=== PATIENT | female | born 1985 | race Caucasian/White ===

== ENCOUNTER 2016-09-25 08:14 | Day surgery (SDC) | payer MEDICAID ==
[~2016-09-25] VITALS: Ht 165.1 cm; Wt 73.1 kg
[2016-09-25] VITALS (12 sets, daily range): BP systolic 94–131; BP diastolic 43–84; PULSE 47–71; RESP 12–22; O2SAT 93–100
[2016-09-25] MEDS: Lactated Ringer's 1,000 ML IV SCH ×3 (05:21→11:46)
--- NOTE | 2016-09-25 06:01 | HP PRE OP ---
[address] [address] PREOPERATIVE HISTORY AND PHYSICAL PATIENT: DANIEL ALMAZAN : 1985 MR#: [id number] ADMIT: 09/25/2016 JOB ID: [id number] IDENTIFICATION: The patient is a 31-year-old, G3, P1, AB2 woman. CHIEF COMPLAINT: Desires tubal sterilization. HISTORY OF PRESENT ILLNESS: This patient has been considering tubal ligation for a year, with both she and her partner certain that they do not want to have additional children. Her partner will not have vasectomy; and thus, she wants to undergo tubal sterilization. She has considered reversible contraceptives as well. She is currently reporting condoms for contraception. She has understood that tubal ligation is a major surgery compared to vasectomy, requiring a general anesthetic, and with more risks. She would like to proceed, however, understanding that risks include bleeding, infection, injury to the urinary tract and bowel, potential need for laparotomy if complication was to occur, anesthetic risks, etc. She understands that tubal ligation could fail as well, although unlikely. She has had all her questions answered, no guarantees have been stated or implied, and she has signed informed consent for surgery. In summary then, the patient will be admitted to [facility] on September 25, 2016, on which day she will undergo laparoscopic tubal ligation, probably via Falope Rings. PHYSICAL EXAMINATION: On admission: Height 65 inches. Weight 160 pounds. Blood pressure 100/68. Neck: No thyromegaly. Lungs: Clear to auscultation and percussion. Heart: Regular in rate and rhythm. Abdomen: Nontender. No mass. No surgical scarring. Pelvic examination recently accomplished elsewhere, reportedly normal (see medical record from July 11, 2016). IMPRESSION: 1. Desires sterilization per laparoscopic tubal ligation, the reason for admission on September 25, 2016. 2. Condoms for contraception. 3. Reproductive history. Vaginal delivery x1, miscarriage x3-4. 4. 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 5. Prior intense periods in the past (before Mirena intrauterine devices), planning to track over time, yet indicating that she may need some sort of hormonal management if significant periods. The patient had Mirena IUD removed in July of this year. 6. Hormonal intolerance, note weight gain and felt poorly with Mirena IUD reportedly (although she had three of them), and she had weight gain with Depo-Provera. 7. No known drug allergies. 8. Family history of heart disease (grandmother). PLAN: The patient will be admitted to [facility] on September 25, 2016, on which day she will undergo laparoscopic tubal ligation likely via Falope rings.
--- NOTE | 2016-09-25 07:42 | PCM.HPANE ---
Patient Data Surgeon Admitting Provider: Attending Provider:Dmitry Agee MD Primary Care Physician:Jackie Other Provider:Soha Soliz Anesthesia Reason for Visit Desired Sterilization Ht/WT & BMI Height (Feet): 5 Height (Inches): 5 Weight (Kilograms): 72 Body Mass Index 26.00 Allergies Coded Allergies: Penicillins (Verified Allergy, Unknown, CHARTED ON WRONG PT, 09/24/16) Medications No Active Prescriptions or Reported Meds Stop/Bang Risk Assessment Category Category 1A: Patient has history of documented sleep apnea, and HAS NOT received any narcotic, sedative or anesthesia administration during this stay. Category 1B: Patient has history of documented sleep apnea, and HAS received any narcotic , sedative or anesthesia administration during this stay Category 2: Patient has SUSPECTED Obstructive Sleep Apnea, and HAS received any narcotic , sedative or anesthesia administration during this stay. Category 3: Patient has SUSPECTED Obstructive Sleep Apnea and HAS NOT received narcotic, sedative or anesthesia administration during this stay. Category 4: Outpatient in Procedural Areas with known sleep apnea or who screen positive for High Risk via the STOP/BANG questionnaire. Exam Exam General Appearance: Alert, Oriented X3, Cooperative HEENT/AIRWAY: MP 1 Lungs: Normal Air Movement Heart: Regular Rate/Rhythm Meds/Labs/Diagnostics Admission Meds Current Medications Lactated Ringer's (Lr) 1,000 ml @ 120 mls/hr [id number] IV Last administered on t 05:21; Start 09/25/16 at 05:00; Stop 09/25/16 at 13:19 Plan Impression Patient chart reviewed, patient interviewed and anesthestic plan with risks, benefits, and alternatives discussed, and informed consent obtained. ASA Physical Status: ASA1 Normal Healthy Anesthetic Plan: GA Bene/Risks/Altern/Consents: Yes HP Complete Prior to Induction: Yes Ethel Greenwood DO Sep 25, 2016 07:41
[2016-09-25] MEDS ORDERED: Ondansetron 2 mg/mL 2 mL Inj ONE (08:15)
[2016-09-25] MEDS ORDERED: Propofol 10,000 mCg/mL 20 mL Inj ONE (08:15)
[2016-09-25] MEDS ORDERED: Rocuronium 10 mg/mL 5 mL Inj ONE (08:15)
[2016-09-25] MEDS ORDERED: fentaNYL-PF 50 mCg/mL 2 mL Inj ONE (08:15)
[2016-09-25] MEDS ORDERED: Dexamethasone 4 mg/mL Inj ONE (08:15)
[2016-09-25] MEDS ORDERED: Ondansetron 2 mg/mL 2 mL Inj IVPUSH PRN ×2 (09:20→10:30)
[2016-09-25] MEDS ORDERED: HYDROmorphone 1 mg/mL Inj IVPUSH PRN ×2 (09:20→10:30)
[2016-09-25] MEDS ORDERED: MetoCLOpramide 5 mg/mL 2 mL Inj IVPUSH PRN ×2 (09:20→10:30)
[2016-09-25] MEDS ORDERED: oxyCODONE-Acetamin 5-325 mg Tablet PO PRN (09:20)
[2016-09-25] MEDS ORDERED: Bupivacaine-MPF 0.5% W/EPI 30 mL Inj INFILTRATE ONE (10:13)
[2016-09-25] MEDS ORDERED: Lactated Ringer's 500 ML IV PRN (10:29)
[2016-09-25] MEDS ORDERED: Lactated Ringer's 1,000 ML IV SCH (10:29)
[2016-09-25] MEDS ORDERED: Phenylephrine 10,000 mCg/mL Inj IVPUSH PRN (10:30)
[2016-09-25] MEDS ORDERED: EPHEDrine Sulfate 50 mg/mL Inj IVPUSH PRN (10:30)
--- NOTE | 2016-09-25 11:07 | PCM.ANEP1 ---
Post Anesthesia Phase 1 PACU Phase 1 Assessment Vital Signs Vital Signs Date Time Temp Pulse Resp B/P Pulse Ox O2 Delivery O2 Flow Rate FiO2 09/25/16 08:38 37.0 71 16 115/69 96 Room Air Anesthetic Administered: GA Level of Alertness: Awake, talking BURRIS's with Equal Strength: Yes Pain: No Nausea or Vomiting: No Cardiovascular Function and Hy: Yes Oxygen Delivery: Simple Mask Lungs: Normal Air Movement Complications: No Ethel Greenwood DO Sep 25, 2016 11:07
[2016-09-25] MEDS: fentaNYL-PF 50 mCg/mL 2 mL Inj IVPUSH PRN ×2 (11:10→11:20)
--- NOTE | 2016-09-27 07:53 | OP ---
[address] [address] OPERATIVE REPORT PATIENT: DANIEL ALMZAAN : 1985 MR#: [id number] ADMIT: 09/25/2016 JOB ID: [id number] DATE OF SURGERY: 09/25/2016 SURGEON: Dmitry Agee MD. [employer] INSTRUCTOR: None. ANESTHESIA: General. PREOPERATIVE DIAGNOSIS(ES): Desires sterilization. POSTOPERATIVE DIAGNOSIS(ES): Desires sterilization. PROCEDURE PERFORMED: Laparoscopic tubal ligation via Falope ring. FINDINGS AT SURGERY: The uterus, fallopian tubes and ovaries were all normal. Only visible pelvic abnormality was that of endometriosis, a 1 mm implant on the left pelvic side wall near the uterosacral ligament and noninvasive, away from ureter and blood vessels. There was also a small pack of endometriosis implants measuring about 3 mm on the left uterosacral ligament. At procedure's close, the fallopian tube had been obstructed with a Falope ring within isthmic tubal segments, and the endometriosis implants had been gently cauterized on the surface with eradication of implants. There was no internal bleeding occurring at any site at procedures' close. Blood loss at the conclusion of the case was scant. It certainly is anticipated the patient will do well in the postoperative time frame. The patient knows to check test if she ever believes she is as there is a chance for intrauterine or ectopic following tubal ligation, although very uncommon. PROCEDURE IN DETAIL: The patient was placed in supine position on the operating table and general anesthesia was induced. She was then very carefully repositioned into the low dorsal lithotomy position and prepped and draped in usual sterile manner. After appropriate time-out, a FERNANDA cannula was secured in place within the cervix/uterus and attention was then directed to the abdomen. A short transverse incision was made in the subumbilical region. This incision was carried through the skin and subcutaneous tissues and fascial layer. The peritoneal cavity was then carefully entered bluntly and the Mercedes trocar sheath was secured in place. Laparoscope was introduced, CO2 and light sources connected, and video camera attached and video laparoscopy was accomplished with findings as noted above. A short transverse 2nd incision was placed at the hairline at the midline, with 5 mm trocar sheath secured at that site to facilitate laparoscopic tubal ligation. The Falope ring was loaded on the applicator individually and advanced through the lower port into the pelvis. The right fallopian tube was grasped within the isthmic portion, and Falope ring was applied and the isolated tube segment immediately blanched. There was no bleeding. The 2nd Falope ring was then loaded and applicator readvanced into the pelvis and ring was similarly placed, this time on the left tubal isthmic portion, also without bleeding, and with good blanching of the isolated tube segment. Kleppinger bipolar forceps were then advanced to the operating channel of the scope gently, utilized to eradicate the small endometriosis implant located focally on the low left pelvic sidewall and left uterosacral ligament. There was no associated bleeding. All instruments were removed from the abdomen and CO2 gas was allowed to escape. The subumbilical fascial incision was closed in a pursestring fashion using 0-Vicryl suture, and the skin incision was closed with interrupted vertical mattress stitches in subcuticular/subcutaneous position using 4-0 Vicryl suture. Marcaine with epinephrine solution was then injected in each incision and Mastisol was then applied and then 1/2-inch Steri-Strips followed by coverage with bandages. There was no bleeding occurring. Attention was then directed to the vaginal region where the FERNANDA cannula was removed from the cervix and uterus. Instrument, needle and sponge counts were found to be correct on multiple occasions. Procedures were complete. Patient was returned to supine position and then awakened and taken to her room for recovery. ESTIMATED BLOOD LOSS: Scant. COMPLICATIONS: None. PROGNOSIS: Good for surgical recovery. [facility]ITAL[facility]arr[facility]
== END 2016-09-25 23:59 | disposition home or self-care (01) ==
LOC: SAS 08:14
PROVIDERS: ATTEND Obstetrics & Gynecology
DX: Z30.2 Encounter for sterilization (principal)
CPT/HCPCS: 58671; J1100; J1170; J2175; J2250; J2405; J3010; J7120

== ENCOUNTER 2016-11-09 18:23 | Emergency (ER) | payer MEDICAID ==
[~2016-11-09] VITALS: Ht 165.1 cm; Wt 68.2 kg
[2016-11-09 18:36] VITALS: BP 117/80; PULSE 78; RESP 16; O2SAT 99
[2016-11-09 19:08] LABS: BASOPHILS % (AUTO) 0.5 % (0-3); EOSINOPHILS % (AUTO) 0.3 % (0-5); MONOCYTES % (AUTO) 6.8 % (4-12); Mean Corpuscular Hemoglobin 31.9 pg (27.0-35.0); Mean Corpuscular Volume 93.1 fL (81-100); Platelet Count 228 bil/L (150-400)
[2016-11-09 19:44] LABS: Magnesium 2.3 mg/dL (1.6-2.6)
--- NOTE | 2016-11-09 21:07 | ED.REPORT ---
HPI-General Illness Date of Service Nov 09, 2016 ED Provider: Efrain Perez MD A heathy 31 year old female with a recent tubal ligation (09/25/16) presents to the ED with general malaise that began approx. one week ago. She rates her current pain as a 2/10 and the worst pain as an 8/10. Recent associated symptoms include abdominal cramping nausea, vomiting, headache, intermittent episodes of diaphoresis, increased thirst, increased urination, dizziness and fatigue. Patient was sent from Urgent Care for further evaluation. Her current pain is different than her typical menstrual cramping. Nursing Notes Stated Complaint: DIZZY,NAUSEA,FATIGUE-SENT BY Chief Complaint: General Complaint Nursing Notes Reviewed: Yes Allergies: Coded Allergies: No Known Allergies (Unverified , 11/09/16) No Active Prescriptions or Reported Meds General Time Seen by MD: 21:06 Chief Complaint Other (Malaise) Hx Obtained From: Patient Arrived By: Walk-in Sudden in Onset?: No Onset Occurred: 1 week ago Symptom Duration: Since onset Location: : Abdomen Quality: Cramping Radiation: : Does not radiate Severity: Current: Pain level 2 out of 10 Severity: Maximum: Pain level 8 out of 10 Associated with: Reports: Abdominal pain, Dizziness, Headache, Nausea, Vomiting Pertinent Negative: Pt denies other symptoms Recent Healthcare: No recent hospitalization, Recent doctor visit Past Medical History Past Medical History None reported. Past Surgical History Reports: Tubal ligation (09/25/2016) Smoking History Unknown if Ever Smoker Social History Other Social History: Good social support, Local resident Ambulatory Status Independent Review of Systems Increased thirst Full Review of Systems Constitutional: Reports: Fatigue, Malaise GI: Reports: Abdominal pain, Nausea, Vomiting Female: Reports: Urination increased Skin: Reports Diaphoresis Neurologic: Reports: Dizziness, Headache Complete sys rev & neg: except as marked. Physical Exam Vital Signs Vital Signs Date Time Temp Pulse Resp B/P Pulse Ox O2 Delivery O2 Flow Rate FiO2 11/09/16 23:13 16 129/74 100 Room Air 11/09/16 18:36 36.8 78 16 117/80 99 Room Air Initial VS: Reviewed, Vital signs normal Head / Eyes: Atraumatic, Normocephalic, PERRL Neck: Supple, Non-tender, Full range of motion Extremities: Vascular intact, Neuro intact, No swelling, No tenderness Skin: Warm, Dry, No cyanosis Neurologic: Alert, Oriented, Nonfocal Psychiatric: Mood/affect normal, Behavior normal, Normal thought content General/Constitutional: Awake, Alert, No acute distress, Well appearing, Well developed Respiratory / Chest: Atraumatic, Breath sounds NL, Breath sounds = bilat, No respiratory distress Cardiovascular: Heart rate NL, Regular rhythm, Heart sounds NL Abdomen: Atraumatic, Soft Tenderness/Guarding/Rebound: Positive: Tender LLQ... Interpretation & Diagnostics Lab Results Interpretation Result Diagram: 11/09/160 11/09/161899 Test 11/09/16 19:00 11/09/16 21:11 White Blood Count 9.5th/mm3 (3.8-10.1) Red Blood Count 4.36mil/mm3 (3.90-5.20) Hemoglobin 13.9g/dL (12.0-15.6) Hematocrit 40.6% (35.0-46.0) Mean Corpuscular Volume 93.1fL (81-100) Mean Corpuscular Hemoglobin 31.9pg (27.0-35.0) Mean Corpuscular Hemoglobin Concent 34.2% (32.0-37.0) Red Cell Distribution Width 12.8% (12.3-15.4) Platelet Count 228bil/L (150-400) Neutrophils (%) (Auto) 66.0% (40-74) Lymphocytes (%) (Auto) 26.2% (14-46) Monocytes (%) (Auto) 6.8% (4-12) Eosinophils (%) (Auto) 0.3% (0-5) Basophils (%) (Auto) 0.5% (0-3) Sodium Level 140mEq/L (134-144) Potassium Level 3.9mEq/L (3.5-5.2) Chloride Level 101mEq/L (97-108) Carbon Dioxide Level 26mmol/L (18-29) Blood Urea Nitrogen 11mg/dL (6-20) Creatinine 0.68mg/dL (0.57-1.00) Estimat Glomerular Filtration Rate 144mL/min (>59) Glucose Level 106mg/dL (60-99) Calcium Level 9.8mg/dL (8.5-10.1) Magnesium Level 2.3mg/dL (1.6-2.6) Total Bilirubin 0.5mg/dL (0.0-1.2) Aspartate Amino Transf (AST/SGOT) 21U/L (0-50) Alanine Aminotransferase (ALT/SGPT) 17U/L (0-32) Alkaline Phosphatase 60U/L (25-150) Total Protein 7.6g/dL (6.4-8.4) Albumin 4.3g/dL (3.4-5.0) Thyroid Stimulating Hormone (TSH) 0.644uIU/mL (0.450-4.500) Hold Rolle Top Tube Received (Received) Monoscreen Negative (Negative) Hold Urine Received (Received) Lab values outside NL range: no clinical significance. Lab Results Interpretation: Monospot negative, thyroid normal. US Focused OB US Focused non-OB Pelvis Preliminary Reading: Left cited ovarian cyst; slightly larger than normal No other acute abnormalitites Radiology: Ovarian vascularity identified bilaterally Bilateral septated ovarian cyst Trace free fluid Re-Eval/Medical Decision Med Decision/Clinical Course 31-year-old female with vague malaise symptoms for the last few days. She is normally a very active lady and states that she just really does not have any energy. She had a tubal ligation several weeks ago. She has a slight left lower quadrant abdominal pain now. Laboratory evaluation is normal to include normal thyroid and negative Monospot. Ultrasound of the lower abdomen reveals no postoperative complication. She has uncomplicated ovarian cysts. There is good color flow to each ovary. No source for her malaise is identified. She is being discharged home to follow up with her regular doctor in 2-3 days. Time of Eval: 22:16 Patient Status: Condition improved Re-Evaluation/Progress Note: Pain has improved and she is resting comfortably. She is informed of her US results and the recommendation to meet with her [employer] JUDGE/OB physician. Counseled Regarding: Diagnosis, Lab results, Need for follow-up, When/why to return to ED Discharge & Departure Primary Impression: Malaise Disposition: Home Discharge Condition All VS Reviewed: Yes Condition: Improved Patient Instructions: Ovarian Cyst (ED) Additional Instructions: Your labs are all normal including negative mono test and normal thyroid. Your ultrasound shows ovarian cyst but no evidence of complication from the previous tubal ligation. At this time I do not have an explanation for the way here feeling. It does not appear to be serious. I suspect that is due to an nonspecific viral infection. Recommend that you follow-up with your regular doctor on Saturday or Saturday if you have persistent symptoms for further evaluation. Return to the emergency room over the weekend if she worsens significantly. Call me at [phone] between the hours of 9 PM and 6 AM for the next couple nights if you have any questions or concerns. There are no other testing can be done in the emergency room that would be helpful at this time. Referrals: Oral Edwards MD (PCP) Scribe Attestation Portions of this note were transcribed by River Monet. I, Dr. Perez personally performed the history, physical exam and medical decision-making; I reviewed and confirmed the accuracy of the information in the transcribed note. Signed by: Yovany Redd, 11/09/16 1880. copies to: Oral Edwards MD, Howard L MD Nov 09, 2016 21:07 RIVER MONET Nov 09, 2016 21:14
[2016-11-09 23:13] VITALS: BP 129/74; RESP 16; O2SAT 100
--- NOTE | 2016-11-10 07:59 | DRSVH ---
PROCEDURE: US PELVIC SONOGRAM WITH TRANSVAG AND DOPPLER INDICATIONS: LLQ abd pain 4 weeks after BTL TECHNIQUE: Real-time scanning was performed of the pelvic organs, with image documentation. Additional endovagi nal scanning was necessary due to incomplete visualization of the adnexal and endometrial structures by transabdominal scanning. COMPARISON: None. FINDINGS: Transabdominal scanning: Limited scanning through the kidneys shows no hydronephrosis. No pathologi c free abdominal or pelvic fluid. Endovaginal scanning: Uterus: Uterus is normal in size at 7.5 x 4.0 x 5.9 cm. The endometrium measures 6.1 mm in combined thickness. Ovaries: Right adnexa measures 2.7 x 1.1 x 1.2 cm. Left adnexa measures 4.1 x 1.9 x 1.7 cm. There is a 2.1 x 1.2 x 1.3 cm septated cyst in the left adnexa. Small follicles noted in the right adnexa. IMPRESSION: Cause of left lower quadrant pain not identified by sonographic evaluation. Dictated by: Kelly Milligan MD, PhD on 11/10/2016 at 7:54 Approved by: Kelly Milligan MD, PhD on 11/10/2016 at 7:57
== END 2016-11-09 23:00 | disposition home or self-care (01) ==
LOC: SED 18:23
DX: R53.81 Other malaise (principal); N83.292 Other ovarian cyst, left side; R11.2 Nausea with vomiting, unspecified; R51 Headache; R42 Dizziness and giddiness; R35.0 Frequency of micturition; Z98.51 Tubal ligation status
CPT/HCPCS: 36415; 76830; 76856; 80053; 81025; 82962; 83735; 84443; 85025; 86308; 93975; 99284; G0463